=== PATIENT | female | born 1955 | race African-American/Black ===

== ENCOUNTER 2016-07-29 09:26 | Emergency (ER) | payer MEDICAID ==
[~2016-07-29] VITALS: Ht 167.6 cm; Wt 102.0 kg
[~2016-07-29 09:26] MED LIST: CARI350T PO; CLON0.1T PO; GABA-290 PO; HYDR-523 PO; LORA10TA7 PO; OMEP20CA10 PO
[2016-07-29] MEDS ORDERED: QUET25TA PO (09:45)
[2016-07-29] MEDS ORDERED: FURO20TA4 PO (09:45)
[2016-07-29] MEDS ORDERED: VENL-180 PO (09:45)
[2016-07-29] MEDS ORDERED: BUPR100T6 PO (09:45)
[2016-07-29 10:35] VITALS: BP 148/97
[2016-07-29] MEDS ORDERED: MAGNESIUM/ALUMINUM HYDROXIDE/SIMETHICONE 30ML UDC PO STA (11:08)
[2016-07-29] MEDS ORDERED: ACETAMINOPHEN 325MG TABLET PO STA (11:08)
[2016-07-29] MEDS ORDERED: ONDANSETRON 4MG ODT PO STA (11:08)
[2016-07-29 11:31] LABS: BASOPHILS % 0.4 % (0.0-2.0); EOSINOPHILS % 4.5 % (0.0-5.0); HEMATOCRIT. 32.5 % (36.0-48.0); HEMOGLOBIN. 10.7 g/dL (12.0-16.0); LYMPHOCYTES % 32.6 % (20.0-50.0); MEAN CORPUSCULAR HEMOGLOBIN 28.6 pg (28.0-32.0); MEAN CORPUSCULAR HGB CONC 32.8 g/dL (31.0-37.0); MEAN CORPUSCULAR VOLUME 87.1 fL (81.0-99.0); MEAN PLATELET VOLUME 8.1 fl (7.4-10.4); MONOCYTES % 9.1 % (2.0-8.0); NEUTROPHILS % 53.4 % (40.0-76.0); PLATELET 274 x1000/uL (130-400); RED BLOOD CELL COUNT 3.73 mill/uL (4.2-5.4); RED CELL DISTRIBUTION WIDTH 14.4 % (11.6-14.6); WHITE BLOOD COUNT 4.4 x1000/uL (4.5-11.0)
[2016-07-29 11:38] LABS: PROTHROMBIN TIME 10.3 sec
[2016-07-29 11:43] LABS: ALANINE AMINOTRANSFERASE 33 IU/L (13-61); ALBUMIN 3.3 g/dL (3.4-5.0); ANION GAP 12; CALCIUM 9.2 mg/dL (8.5-10.1); CARBON DIOXIDE 28 mEq/L (21-32); CHLORIDE 109 mEq/L (98-107); INDEX HEMOLYSI 1 (1-3); INDEX ICTERIC 1 (1-4); INDEX LIPEMIC 1 (1-3); LIPASE 56 IU/L (73-393); UREA NITROGEN BLOOD 26 mg/dL (7-21); eGFR > 60 mL/min (>60)
[2016-07-29 11:53] LABS: CLARITY URINE CLEAR (CLEAR); COLOR URINE YELLOW (YELLOW); GLUCOSE URINE NEGATIVE (NEGATIVE); KETONES URINE NEGATIVE (NEGATIVE); LEUKOCYTE ESTERASE URINE NEGATIVE (NEGATIVE); NITRITE URINE NEGATIVE (NEGATIVE); OCCULT BLOOD URINE NEGATIVE (NEGATIVE); PROTEIN URINE NEGATIVE (NEGATIVE); SPECIFIC GRAVITY URINE 1.025 (1.005-1.030); UROBILINOGEN URINE 0.2 E.U./dL (0.2-1.0)
[2016-07-29] MEDS ORDERED: VISCOUS LIDOCAINE 2% 15 ML UDC PO STA (12:15)
[2016-07-29] MEDS ORDERED: DICYCLOMINE 10 MG/5 ML ORAL SYR PO STA (12:15)
[2016-07-29 12:20] LABS: *AMPHETAMINES SCREEN URINE NEGATIVE (NEGATIVE); *BARBITURATES SCREEN URINE NEGATIVE (NEGATIVE); *BENZODIAZEPINES SCREEN URINE NEGATIVE (NEGATIVE); *COCAINE SCREEN URINE NEGATIVE (NEGATIVE); CANNABINOID URINE SCREEN PRESUMTIVE POSITIVE (NEGATIVE); ECSTASY MDMA SCREEN URINE CONF.TEST INDICATED (NEGATIVE); METHADONE URINE SCREEN NEGATIVE (NEGATIVE); OPIATES URINE SCREEN NEGATIVE (NEGATIVE); PHENCYCLIDINE URINE SCREEN NEGATIVE (NEGATIVE)
== END 2016-07-29 13:17 | disposition home or self-care (01) ==
LOC: ER 11:09
DX: F12.10 Cannabis abuse, uncomplicated (principal); R10.9 Unspecified abdominal pain; K21.9 Gastro-esophageal reflux disease without esophagitis; F31.9 Bipolar disorder, unspecified; Z90.710 Acquired absence of both cervix and uterus; Z98.890 Other specified postprocedural states; Z79.899 Other long term (current) drug therapy
CPT/HCPCS: 36415; 80053; 80305; 81003; 83690; 85025; 85610; 99284; Q0162